=== PATIENT | male | born 1955 | race African-American/Black ===

== ENCOUNTER 2020-11-16 03:33 | Emergency (ER) | payer SELFPAY ==
[~2020-11-16] VITALS: Ht 170.2 cm; Wt 79.4 kg
--- NOTE | 2020-11-16 03:33 | NUR ---
PT BIB [facility], PREBOOK. TAKEN TO CHAIR
[2020-11-16 03:42] VITALS: BP 151/81
[2020-11-16 03:45] VITALS: BP 151/81
--- NOTE | 2020-11-16 03:47 | NUR ---
see complete assessment.
--- NOTE | 2020-11-16 04:17 | NUR ---
PT TAKEN TO CT
--- NOTE | 2020-11-16 04:23 | NUR ---
PT RETURN FROM [facility]
--- NOTE | 2020-11-16 05:07 | NUR ---
pt d/c to custody of [facility] Officer [place] [id number]. d/c teaching given. opportunity to ask questions given and answered.
== END 2020-11-16 05:07 ==
LOC: MED 03:33
DX: S09.90XA Unspecified injury of head, initial encounter (principal); F10.129 Alcohol abuse with intoxication, unspecified; Z02.89 Encounter for other administrative examinations; V98.8XXA Other specified transport accidents, initial encounter; Y93.89 Activity, other specified; Y92.89 Other specified places as the place of occurrence of the external cause; Y99.8 Other external cause status
CPT/HCPCS: 70450; 99284